=== PATIENT | female | born 1995 | race Caucasian/White ===

== ENCOUNTER → 2018-10-07 | Outpatient (CLI) | payer OTHER ==
[2018-10-07 13:41] LABS: Blood Urea Nitrogen 17 mg/dL (7-17)
--- NOTE | 2018-10-07 15:14 | CT ---
EXAMINATION TYPE: CT abdomen pelvis w con DATE OF EXAM: 10/07/2018 HISTORY: Abdominal and back pain. CT DLP: 1614.6mGycm Automated Exposure Control for Dose Reduction was Utilized. CONTRAST: CT scan of the abdomen and pelvis is performed with IV Contrast, patient injected with 100 mL of Isov ue M300. COMPARISON: None FINDINGS: LUNG BASES: No significant abnormality is appreciated. LIVER/GB: Liver is markedly hypodense consistent with diffuse fatty infiltration. PANCREAS: No significant abnormality is seen. SPLEEN: No significant abnormality is seen. ADRENALS: No significant abnormality is seen. KIDNEYS: Symmetric cortical medullary uptake and excretion from both kidneys is seen without hydronep hrosis identified bilaterally. BOWEL: The oral contrast reaches level of the splenic flexure. Appendix felt within normal limits fro m low-lying cecum. There is no suspicious small or large bowel dilatation seen. UTERUS/ADNEXA: Anteverted uterus is present. Low dense lesions both ovaries favor prominent follicles or simple small ovarian cysts, left ovary lesion is larger on axial image 75. LYMPH NODES: No greater than 1cm abdominal or pelvic lymph nodes are appreciated. OSSEOUS STRUCTURES: No significant abnormality is seen. OTHER: Small to moderate-sized fat-containing umbilical hernia axial image 48 is noted. IMPRESSION: No significant acute finding is seen to account for patient's clinical symptoms.
== END | disposition home or self-care (01) ==
LOC: RADCTMAIN 12:51
PROVIDERS: ATTEND Nurse Practitioner
DX: R10.13 Epigastric pain (principal); K92.1 Melena; R14.0 Abdominal distension (gaseous)
CPT/HCPCS: 82565; 84520; 74177; 36415; Q9967

== ENCOUNTER → 2020-08-07 | Outpatient (CLI) | payer OTHER ==
--- NOTE | 2020-08-07 18:07 | XR ---
Result: History: Pain. Comparison: None available. Technique: 4 views of the left wrist. Findings: No acute fracture or dislocation is seen. The visualized osseous structures are in anatomic alignmen t. The joint spaces are preserved. Impression: No acute fracture or dislocation.
== END | disposition home or self-care (01) ==
LOC: RAD 17:18
PROVIDERS: ATTEND Emergency Medicine
DX: S63.502D Unspecified sprain of left wrist, subsequent encounter (principal)